=== PATIENT | female | born 1935 | race Caucasian/White ===

== ENCOUNTER 2023-04-20 19:29 | Emergency (ER) | payer MEDICARE ==
[~2023-04-20 19:29] MED LIST: ASA LO-DOSE81 MG OR; BONIVA2.5 MG OR; CALCIUM600 M2 OR; MULTIVITAMIN OR; VYTORIN1 TA1 OR; WATER PILL
[2023-04-20] MEDS ORDERED: LIDOcaine HCl 1% (Local Anesth.) 20 ML VIAL STI STA (20:47)
[2023-04-20] MEDS ORDERED: POVIDONE IODINE 0.5 OZ/BTL TOP ONE (20:50)
[2023-04-20] MEDS ORDERED: SODIUM CHLORIDE 1,000 ML BTL IR ONE (20:50)
[2023-04-20] MEDS ORDERED: SODIUM CHLORIDE 500 ML BTL IR ONE (20:50)
[2023-04-20] MEDS ORDERED: KEFLEX500 MG PO (21:51)
[2023-04-20] MEDS ORDERED: MELOXICAM7.5 MG PO (21:51)
[2023-04-20 21:58] VITALS: BP 153/76
== END 2023-04-20 22:43 | disposition home or self-care (01) ==
LOC: ED 19:29
DX: S41.112A Laceration without foreign body of left upper arm, initial encounter (principal); S41.111A Laceration without foreign body of right upper arm, initial encounter; S81.812A Laceration without foreign body, left lower leg, initial encounter; I10 Essential (primary) hypertension; E03.9 Hypothyroidism, unspecified; E78.5 Hyperlipidemia, unspecified; W10.9XXA Fall (on) (from) unspecified stairs and steps, initial encounter; Y92.009 Unspecified place in unspecified non-institutional (private) residence as the place of occurrence of the external cause

== ENCOUNTER 2024-03-24 14:59 | Emergency (ER) | payer MEDICARE ==
[~2024-03-24] VITALS: Ht 165.1 cm; Wt 81.6 kg
[~2024-03-24 14:59] MED LIST changes: +KEFLEX500 MG PO; +MELOXICAM7.5 MG PO
[2024-03-24 15:12] VITALS: BP 164/80
[2024-03-24 15:15] VITALS: BP 160/84
[2024-03-24] MEDS ORDERED: LIDOcaine HCl 1% (Local Anesth.) 20 ML VIAL STI STA (15:27)
[2024-03-24 15:30] VITALS: BP 159/86
[2024-03-24] MEDS ORDERED: Diph, Acellular Pertussis, Tet 0.5 ML/VIAL (Tdap) SDV IM ONE (15:30)
[2024-03-24] MEDS ORDERED: NEOMYCIN-BACITRACIN-POLYMYXIN 0.5 GM/PAK PAK TOP ONE (15:30)
[2024-03-24] MEDS ORDERED: POVIDONE IODINE 0.5 OZ/BTL TOP ONE (15:30)
[2024-03-24] MEDS ORDERED: TOPROL XL25 M1 PO (15:33)
[2024-03-24] MEDS ORDERED: THYROID (15:34)
[2024-03-24 15:45] VITALS: BP 156/85
[2024-03-24 16:00] VITALS: BP 148/77
[2024-03-24] MEDS ORDERED: KEFLEX500 MG PO (16:32)
[2024-03-24 17:12] VITALS: BP 136/72
== END 2024-03-24 17:12 | disposition home or self-care (01) ==
LOC: ED 14:59
PROC: 0JQD3ZZ Repair Right Upper Arm Subcutaneous Tissue and Fascia, Percutaneous Approach (ICD-10-PCS; principal; 2024-03-24)
DX: S41.111A Laceration without foreign body of right upper arm, initial encounter (principal); S93.401A Sprain of unspecified ligament of right ankle, initial encounter; I10 Essential (primary) hypertension; E78.5 Hyperlipidemia, unspecified; E03.9 Hypothyroidism, unspecified; W10.8XXA Fall (on) (from) other stairs and steps, initial encounter; Y92.028 Other place in mobile home as the place of occurrence of the external cause
CPT/HCPCS: 90715

== ENCOUNTER 2024-04-09 13:36 | Emergency (ER) | payer MEDICARE ==
[~2024-04-09] VITALS: Ht 165.1 cm; Wt 79.0 kg
[~2024-04-09 13:36] MED LIST changes: +THYROID; +TOPROL XL25 M1 PO
[2024-04-09 13:44] VITALS: BP 176/88
[2024-04-09] MEDS ORDERED: KETOROLAC TROMETHAMINE 30 MG/ML SDV IM ONE (13:55)
[2024-04-09] MEDS ORDERED: METHOCARBAMOL 500 MG/TAB PO ONE (13:55)
[2024-04-09 14:01] VITALS: BP 132/68
[2024-04-09] MEDS ORDERED: METHOCARBAMOL500 MG PO (14:05)
[2024-04-09 14:15] VITALS: BP 128/65
[2024-04-09 14:16] VITALS: BP 128/65
== END 2024-04-09 14:32 | disposition home or self-care (01) ==
LOC: ED 13:36
DX: M41.9 Scoliosis, unspecified (principal); I10 Essential (primary) hypertension; E78.5 Hyperlipidemia, unspecified; E03.9 Hypothyroidism, unspecified